=== PATIENT | female | born 1960 | race Caucasian/White ===

== ENCOUNTER 2016-09-01 09:52 | Emergency (ER) | payer SELFPAY ==
[~2016-09-01] VITALS: Ht 167.6 cm; Wt 65.0 kg
[~2016-09-01 09:52] MED LIST: FLUO20SO3 PO; GLUC10TA3 PO; IBUP800T23 PO; LISI-360 PO
[2016-09-01 09:57] VITALS: BP 178/68; PULSE 91; RESP 16; TEMP 97.9; O2SAT 98
--- NOTE | 2016-09-01 10:05 | PD ---
HPI . bug bites/skin problems Chief Complaint: Skin Problem Time Seen by Provider: 10:05 Travel History International Travel<30 days: No Contact w/Intl Traveler<30days: No Traveled to known affect area: No History of Present Illness HPI 56-year-old female here with complaints of bug bites and skin problems for quite some time. Patient says she has been bitten by bugs and has been scratching away at the bites. 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 Today she is here requesting something for pain. She is accompanied by her significant other who would like her examined for any type of infection. Patient tells me she is here requesting pain control medications. She denies any fever or chills. She has no other complaints. PFSH Past Medical History Arthritis: Yes Depression: Yes High Cholesterol: Yes COPD: Yes Cerebrovascular Accident: Yes (POSSIBLE 2009) Diabetes: Yes (TYPE II) Diminished Hearing: No Hypertension: Yes Respiratory: Yes (COPD) Migraines: Yes Past Surgical History Cholecystectomy: Yes Other Surgery: Yes (sinus) Social History Alcohol Use: No Tobacco Use: Yes (1ppd) Substance Use: No Allergies-Medications (Allergen,Severity, Reaction): Coded Allergies: Gabapentin (Verified Allergy, Mild, FACIAL ITCHING, 06/07/15) Morphine (Verified Allergy, Mild, ITCHING AND RASH, 06/07/15) Penicillin (Verified Allergy, Mild, UNKNOWN WAS TOLD CHILD, 06/07/15) Reported Meds & Prescriptions Reported Meds & Active Scripts Active Bactrim DS (Sulfamethoxazole-Trimethoprim) 800-160 Mg Tab 1 Tab PO BID Ibuprofen 800 Mg Tab 800 Mg PO Q6H PRN Reported Prozac (Fluoxetine HCl) 20 Mg/5 Ml Liqd 40 Mg PO DAILY Lisinopril 10 mg (Lisinopril) 10 Mg Tab 20 Mg PO DAILY Glipizide 10 Mg Tab 10 Mg PO DAILY Review of Systems General / Constitutional: No: Fever Eyes: No: Visual changes HENT: No: Headaches Cardiovascular: No: Chest Pain or Discomfort Respiratory: No: Shortness of Breath Gastrointestinal: No: Abdominal Pain Genitourinary: No: Dysuria Musculoskeletal: No: Pain Skin: Positive Other (bug bites/ skin excoriations ), No Rash Neurologic: No: Weakness Psychiatric: No: Depression Endocrine: No: Polydipsia Hematologic/Lymphatic: No: Easy Bruising Physical Exam Narrative GENERAL: AAO x 3, no acute distress, Well-nourished, well-developed patient. SKIN: Warm and dry. Multiple excoriations too numerous to count scattered all throughout the body. Some on the lower extremity bilaterally are slightly erythematous. There are none that look overtly infected. HEAD: Normocephalic and atraumatic. EYES: No scleral icterus. No injection or drainage. EOM intact, PERRLA ENT: No nasal drainage noted. Mucous membranes pink. Airway patent. NECK: Supple, trachea midline. No JVD. CARDIOVASCULAR: Regular rate and rhythm without murmurs, gallops, or rubs. RESPIRATORY: Breath sounds equal bilaterally. No accessory muscle use. No rhonchi or rales. GASTROINTESTINAL: Visual inspection normal EXTREMITIES: No cyanosis or edema. BACK: Nontender without obvious deformity. No CVA tenderness. PSYCH: AAO x 3, normal affect. Data Data Last Documented VS Vital Signs Date Time Temp Pulse Resp B/P Pulse Ox O2 Delivery O2 Flow Rate FiO2 09/01/16 09:57 97.9 91 16 178/68 98 MDM Medical Decision Making Medical Screen Exam Complete: Yes Emergency Medical Condition: Yes Medical Record Reviewed: Yes Differential Diagnosis Bug bites, multiple excoriations, less likely cellulitis, poor hygiene Narrative Course 56-year-old female here with multiple bug bites and scattered excoriations throughout her body. There are none that look overtly infected; however with her poor hygiene and what seems to be deplorable living conditions, I'll go ahead and give her a course of Bactrim. I advised follow-up with her primary care provider. I recommend no more scratching at the excoriations. I've explained to her that she can use Tylenol or Motrin as needed for pain. I explained her that unfortunately I will not be prescribing her any narcotic pain medication. Diagnosis Primary Impression: Insect bite Qualified Code: W57.XXXA - Insect bite, initial encounter Additional Impression: Multiple excoriations Patient Instructions: Acute Wound Care (ED), General Instructions Additional Instructions: Please return to emergency department if your symptoms return or worsen. Follow up with your primary care provider. Take medications as prescribed. Clean your skin with soap and water daily. Try to get rid of the bugs. [place] for worsening signs of infection which include fever, increased redness , increased warmth, purulent drainage, increased swelling or streaking. If any of these develop, please go to the nearest emergency room. Use Tylenol or Motrin as needed for pain. Med/Other Pt SpecificInfo: Prescription(s) given Scripts Sulfamethoxazole-Trimethoprim (Bactrim DS)800-160 Mg Tab1 Tab PO BID #20 TAB Prov:Adam Serrano MD 09/01/16 Disposition: 01 DISCHARGE HOME Condition: Stable Natasha Olson September 01, 2016 10:05
[2016-09-01] MEDS ORDERED: BACT800T5 PO (10:10)
== END 2016-09-01 10:55 | disposition home or self-care (01) ==
LOC: NEPK 09:52
DX: T14.8 Other injury of unspecified body region (principal); W57.XXXA Bitten or stung by nonvenomous insect and other nonvenomous arthropods, initial encounter; E11.9 Type 2 diabetes mellitus without complications; I10 Essential (primary) hypertension; F17.210 Nicotine dependence, cigarettes, uncomplicated
CPT/HCPCS: 99282

== ENCOUNTER 2017-03-13 16:47 | Inpatient (IN) | payer SELFPAY ==
[2017-03-13] VITALS (7 sets, daily range): BP systolic 122–141; BP diastolic 53–65; PULSE 70–99; RESP 18–20; TEMP 98.1–99.1; O2SAT 96–98
[~2017-03-13] VITALS: Ht 167.6 cm; Wt 62.3 kg
[~2017-03-13 16:47] MED LIST changes: +BACT800T5 PO
[2017-03-13] MEDS ORDERED: PROZ40CA PO (17:22)
[2017-03-13] MEDS ORDERED: LISI-515 PO (17:22)
[2017-03-13] MEDS ORDERED: KETOROLAC TROMETHAMINE 30 MG/ML (IVP) VIAL IV PUSH ONE (17:30)
[2017-03-13] MEDS ORDERED: TETANUS/DIPHTHERIA TOXOID ADULT 0.5 ML VIAL IM ONE (17:30)
[2017-03-13] MEDS ORDERED: VANCOMYCIN INJ 1,000 MG in SODIUM CHLOR 0.9% 250 ML INJ 250 ML IV ONE (17:30)
--- NOTE | 2017-03-13 17:37 | PD ---
HPI Chief Complaint: Wound/Suture/Staple Re-Check Time Seen by Provider: 17:15 Travel History International Travel<30 days: No Contact w/Intl Traveler<30days: No Traveled to known affect area: No History of Present Illness HPI Patient is a 56-year-old female who presents to emergency room for evaluation of abscess to her posterior scalp. Patient reports that she has had history of multiple skin infections, she was treated at multiple hospitals for her skin infections which "pop out of no where." Reports that she was supposed to follow -up with a educational therapist but since she does not have insurance, she cannot follow-up with a educational therapist. Patient reports that 3 days ago, she felt "bump " to the back of her head. She reports that the "bump" popped 3 days ago and has been draining. Reports no fever/chills. Reports that she has not been picking the skin on her scalp. Reports that tetanus is not up-to-date. PFSH Past Medical History Hx Anticoagulant Therapy: Yes Arthritis: Yes Depression: Yes Cardiovascular Problems: Yes High Cholesterol: Yes COPD: Yes Cerebrovascular Accident: Yes Diabetes: Yes (TYPE II) Patient Takes Glucophage: No Diminished Hearing: No Hypertension: Yes Respiratory: Yes (COPD) Migraines: Yes Tetanus Vaccination: > 5 Years ?: Not Tubal Ligation: Yes Past Surgical History Cholecystectomy: Yes Other Surgery: Yes (sinus) Social History Alcohol Use: No Tobacco Use: Yes (1ppd) Substance Use: No (POT, COCAINE LAST USE 03/10/17) Allergies-Medications (Allergen,Severity, Reaction): Coded Allergies: gabapentin (Unverified Allergy, Mild, FACIAL ITCHING, 03/13/17) morphine (Unverified Allergy, Mild, ITCHING AND RASH, 03/13/17) penicillin G (Unverified Allergy, Mild, UNKNOWN WAS TOLD CHILD, ) Reported Meds & Prescriptions Reported Meds & Active Scripts Active Reported Lisinopril 20 Mg Tab 20 Mg PO DAILY Prozac (Fluoxetine HCl) 40 Mg Cap 40 Mg PO DAILY Review of Systems General / Constitutional: No: Fever Eyes: No: Visual changes HENT: No: Headaches Cardiovascular: No: Chest Pain or Discomfort Respiratory: No: Shortness of Breath Gastrointestinal: No: Abdominal Pain Genitourinary: No: Dysuria Musculoskeletal: No: Pain Skin: Positive Rash, Positive Itching, Positive Other (abscess) Neurologic: No: Weakness Psychiatric: No: Depression Endocrine: No: Polydipsia Hematologic/Lymphatic: No: Easy Bruising Physical Exam Narrative GENERAL: mild distress SKIN: Focused skin assessment warm/dry. Patient with multiple excoriations throughout her upper and lower extremities HEAD: Normocephalic. Patient with a 3 cm x 3cm circumferential abscess to her posterior scalp with increased purulent drainage EYES: Pupils equal and round. No scleral icterus. No injection or drainage. ENT: No nasal bleeding or discharge. Mucous membranes pink and moist. NECK: Trachea midline. No JVD. CARDIOVASCULAR: Regular rate and rhythm. No murmur appreciated. RESPIRATORY: No accessory muscle use. Clear to auscultation. Breath sounds equal bilaterally. GASTROINTESTINAL: Abdomen soft, non-tender, nondistended. Hepatic and splenic margins not palpable. MUSCULOSKELETAL: No obvious deformities. No clubbing. No cyanosis. No edema. NEUROLOGICAL: Awake and alert. No obvious cranial nerve deficits. Motor grossly within normal limits. Normal speech. PSYCHIATRIC: Appropriate mood and affect; insight and judgment normal. Data Data Last Documented VS Vital Signs Date Time Temp Pulse Resp B/P (MAP) Pulse Ox O2 Delivery O2 Flow Rate FiO2 03/13/17 18:36 82 18 128/59 (82) 98 Room Air 03/13/17 17:22 98.8 Orders Orders Basic Metabolic Panel (Bmp) (03/13/17 17:26) Complete Blood Count With Diff (03/13/17 17:26) Blood Culture (03/13/17 17:26) Ecg Monitoring (03/13/17 17:26) Iv Access Insert/Monitor (03/13/17 17:26) Oximetry (03/13/17 17:26) Vancomycin Inj (Vancomycin Inj) (03/13/17 17:30) Prothrombin Time / Inr (Pt) (03/13/17 17:26) Act Partial Throm Time (Ptt) (03/13/17 17:26) Ct Brain W/O Iv Contrast(Rout) (03/13/17 17:26) Ketorolac Inj (Toradol Inj) (03/13/17 17:30) Tetanus/Diphtheria Tox Adult (Tetanus/Di (03/13/17 17:30) Ed Urine Pregnancytest Poc (03/13/17 17:30) Acetamin-Hydrocod 325-5 Mg ([place] 5-325 (03/13/17 18:30) Admit To Inpatient (03/13/17 ) Vital Signs (Adult) Q4H (03/13/17 18:33) Activity Oob Ad Laly (03/13/17 18:33) Diet Regular Basic (03/13/17 Dinner) Sodium Chloride 0.9% Flush (Ns Flush) (03/13/17 18:45) Sodium Chloride 0.9% Flush (Ns Flush) (03/13/17 21:00) Acetaminophen (Tylenol) (03/13/17 18:45) Ondansetron Inj (Zofran Inj) (03/13/17 18:45) Basic Metabolic Panel (Bmp) (03/14/17 06:00) Complete Blood Count With Diff (03/14/17 06:00) Naloxone Inj (Narcan Inj) (03/13/17 18:45) Sennosides (Senokot) (03/13/17 18:45) Ketorolac Inj (Toradol Inj) (03/13/17 18:45) Clindamycin 600 Mg Premix (Cleocin 600mg (03/13/17 18:45) Ns 1000 Ml (03/13/17 18:45) Labs Laboratory Tests Test 03/13/17 17:40 White Blood Count 18.6 TH/MM3 Red Blood Count 4.80 MIL/MM3 Hemoglobin 12.6 GM/DL Hematocrit 40.1 % Mean Corpuscular Volume 83.6 FL Mean Corpuscular Hemoglobin 26.3 PG Mean Corpuscular Hemoglobin Concent 31.4 % Red Cell Distribution Width 14.3 % Platelet Count 683 TH/MM3 Mean Platelet Volume 7.5 FL Neutrophils (%) (Auto) 77.3 % Lymphocytes (%) (Auto) 17.1 % Monocytes (%) (Auto) 3.5 % Eosinophils (%) (Auto) 0.2 % Basophils (%) (Auto) 1.9 % Neutrophils # (Auto) 14.3 TH/MM3 Lymphocytes # (Auto) 3.2 TH/MM3 Monocytes # (Auto) 0.7 TH/MM3 Eosinophils # (Auto) 0.0 TH/MM3 Basophils # (Auto) 0.4 TH/MM3 CBC Comment DIFF FINAL Differential Comment Prothrombin Time 9.8 SEC Prothromb Time International Ratio 0.9 RATIO Activated Partial Thromboplast Time 24.3 SEC Blood Urea Nitrogen 18 MG/DL Creatinine 1.10 MG/DL Calcium Level 8.9 MG/DL Sodium Level 130 MEQ/L Potassium Level 5.1 MEQ/L Chloride Level 95 MEQ/L Carbon Dioxide Level 25.7 MEQ/L Anion Gap 9 MEQ/L Estimat Glomerular Filtration Rate 51 ML/MIN MDM Medical Decision Making Medical Screen Exam Complete: Yes Emergency Medical Condition: Yes Medical Record Reviewed: Yes Interpretation(s) Vital Signs Date Time Temp Pulse Resp B/P (MAP) Pulse Ox O2 Delivery O2 Flow Rate FiO2 03/13/17 17:22 98.8 95 18 134/65 (88) 96 Room Air 03/13/17 17:00 99.1 99 20 141/64 (89) 98 Differential Diagnosis Abscess Narrative Course During the course of the patients emergency department visit, the patients history, examination, and differential diagnosis were reviewed with the patient. The patient was placed on a strategic account manager with oximetry and frequent blood pressure monitoring. The patient had a 20-gauge IV access obtained and blood work sent for analysis. The patient was initially provided IV vancomycin, IV toradol and updated tetanus shot The patients laboratory studies were reviewed and remarkable for CBC & BMP Diagram 03/13/17 17:40 Calcium Level 8.9 Radiology studies were reviewed and remarkable for: CT of head: CONCLUSION: 1. Scalp laceration/contusion. 2. No acute intracranial abnormality. Patient with a white blood cell count of 18.6, patient with purulent drainage from the abscess to her posterior scalp, patient will require admission to the hospital this time for further treatment case reviewed with dr. rubio who accepts pt to service Diagnosis Primary Impression: Scalp abscess Admitting Information Admitting Physician Requests: Observation Elena Sims DO Mar 13, 2017 17:37
[2017-03-13 17:56] LABS: AUTOMATED NEUTROPHIL # 14.3 TH/MM3 (1.8-7.7); BASOPHIL # 0.4 TH/MM3 (0-0.2); BASOPHIL % 1.9 % (0.0-2.0); EOSINOPHIL % 0.2 % (0.0-4.0); HEMATOCRIT 40.1 % (35.0-46.0); LYMPH % 17.1 % (9.0-44.0); LYMPHOCYTE # 3.2 TH/MM3 (1.0-4.8); MEAN CELL VOLUME 83.6 FL (80.0-100.0); MEAN CORPUSCULAR HEMOGLOBIN 26.3 PG (27.0-34.0); MEAN CORPUSCULAR HGB CONC 31.4 % (32.0-36.0); MONO % 3.5 % (0.0-8.0); NEUT % 77.3 % (16.0-70.0); PLATELET COUNT 683 TH/MM3 (150-450); RED CELL DISTRIBUTION WIDTH 14.3 % (11.6-17.2); WHITE BLOOD COUNT 18.6 TH/MM3 (4.0-11.0)
[2017-03-13 18:04] LABS: HEMO FLAGS DIFF FINAL
[2017-03-13 18:09] LABS: POTASSIUM 5.1 MEQ/L (3.5-5.1)
[2017-03-13 18:11] LABS: APTT (PATIENT) 24.3 SEC (24.3-30.1); INTERNATIONAL NORMALIZED RATIO 0.9 RATIO; PROTHROMBIN TIME - PATIENT 9.8 SEC (9.8-11.6)
[2017-03-13 18:13] LABS: BICARBONATE 25.7 MEQ/L (21.0-32.0)
--- NOTE | 2017-03-13 18:16 | RADRPT ---
EXAM DATE/TIME: 03/13/2017 18:04 [facility] COMPARISON: No previous studies available for comparison. INDICATIONS : Posterior head wound with infection. Patient felt a bump on the back of her head, and then it popped and started draining. Has a history of multiple skin infections. RADIATION DOSE: 57.66 CTDIvol (mGy) MEDICAL HISTORY : Cerebrovascular disease. Chronic obstructive pulmonary disease. Hypertension.Diabetes. Anticoagulant therapy. SURGICAL HISTORY : Cholecystectomy. Tubal ligation.Orthopedic surgery. ENCOUNTER: Initial ACUITY: 3 days PAIN SCALE: 6/10 LOCATION: occipital TECHNIQUE: Multiple contiguous axial images were obtained of the head. Using automated exposure control and adj ustment of the mA and/or kV according to patient size, radiation dose was kept as low as reasonably a chievable to obtain optimal diagnostic quality images. DICOM format image data is available electro nically for review and comparison. FINDINGS: CEREBRUM: The ventricles are normal for age. No evidence of midline shift, mass lesion, hemorrhage or acute in farction. No extra-axial fluid collections are seen. POSTERIOR FOSSA: The cerebellum and brainstem are intact. The 4th ventricle is midline. The cerebellopontine angle i s unremarkable. EXTRACRANIAL: The visualized portion of the orbits is intact. Right posterior scalp laceration/contusion. SKULL: The calvaria is intact. No evidence of skull fracture. CONCLUSION: 1. Scalp laceration/contusion. 2. No acute intracranial abnormality. Irving Multani MD on March 13, 2017 at 18:13 Board Certified Radiologist. This report was verified electronically.
[2017-03-13] MEDS ORDERED: ACETAMINOPHEN/HYDROcodone 325 MG/5 MG TAB PO ONE ×2 (18:30→23:45)
[2017-03-13] MEDS ORDERED: NALOXONE HCL 0.4 MG/ML AMP IV PUSH PRN (18:45)
[2017-03-13] MEDS ORDERED: ONDANSETRON HCL 4 MG/2 ML VIAL IVP PRN (18:45)
[2017-03-13] MEDS ORDERED: ACETAMINOPHEN 325 MG TAB PO PRN (18:45)
[2017-03-13] MEDS ORDERED: SENNOSIDES 8.6 MG TAB PO PRN (18:45)
[2017-03-13] MEDS ORDERED: SODIUM CHLORIDE 0.9% FLUSH 10 ML FLUSH IV FLUSH PRN (18:45)
[2017-03-13] MEDS ORDERED: SODIUM CHLOR 0.9% 1000 ML INJ 1,000 ML IV ONE (19:15)
[2017-03-13] MEDS ORDERED: INSULIN HUMAN REGULAR 1,000 UNITS/10 ML VIAL SQ ONE (19:15)
[2017-03-13] MEDS: SODIUM CHLOR 0.9% 1000 ML INJ 1,000 ML IV SCH ×2 (19:54→20:56)
[2017-03-13] MEDS: CLINDAMYCIN 600 MG PREMIX 50 ML IV SCH (19:58)
[2017-03-13] MEDS: SODIUM CHLORIDE 0.9% FLUSH 10 ML FLUSH IV FLUSH SCH (20:58)
[2017-03-13] MEDS: KETOROLAC TROMETHAMINE 60 MG/2 ML (IM) VIAL IM PRN (21:03)
[2017-03-14] VITALS: BP 140/68; PULSE 70; RESP 18; TEMP 98.1; O2SAT 97
[2017-03-14] MEDS: KETOROLAC TROMETHAMINE 60 MG/2 ML (IM) VIAL IM PRN (03:48)
[2017-03-14] MEDS: CLINDAMYCIN 600 MG PREMIX 50 ML IV SCH ×2 (03:49→11:28)
[2017-03-14 06:38] LABS: AUTOMATED NEUTROPHIL # 9.2 TH/MM3 (1.8-7.7); BASOPHIL % 0.4 % (0.0-2.0); EOSINOPHIL # 0.2 TH/MM3 (0-0.4); EOSINOPHIL % 1.7 % (0.0-4.0); HEMATOCRIT 35.2 % (35.0-46.0); HEMO FLAGS DIFF FINAL; LYMPH % 17.9 % (9.0-44.0); LYMPHOCYTE # 2.2 TH/MM3 (1.0-4.8); MEAN CELL VOLUME 81.4 FL (80.0-100.0); MEAN CORPUSCULAR HEMOGLOBIN 26.3 PG (27.0-34.0); MEAN CORPUSCULAR HGB CONC 32.3 % (32.0-36.0); MONO % 5.2 % (0.0-8.0); NEUT % 74.8 % (16.0-70.0); PLATELET COUNT 536 TH/MM3 (150-450); RED BLOOD COUNT 4.32 MIL/MM3 (4.00-5.30); RED CELL DISTRIBUTION WIDTH 13.7 % (11.6-17.2); WHITE BLOOD COUNT 12.2 TH/MM3 (4.0-11.0)
[2017-03-14 07:26] LABS: BICARBONATE 24.2 MEQ/L (21.0-32.0); POTASSIUM 4.4 MEQ/L (3.5-5.1)
[2017-03-14 07:50] VITALS: BP 159/67; PULSE 81; RESP 20; TEMP 98.3; O2SAT 97
[2017-03-14] MEDS ORDERED: DEXTROSE 50% IN WATER 50 ML VIAL(D50) IV PUSH PRN (08:00)
[2017-03-14] MEDS ORDERED: GLUCAGON 1 MG/ML VIAL OTHER PRN (08:00)
[2017-03-14] MEDS: SODIUM CHLORIDE 0.9% FLUSH 10 ML FLUSH IV FLUSH SCH (08:07)
[2017-03-14] MEDS: INSULIN ASPART SUPPLEMENTAL SCALE SQ SCH ×2 (08:16→11:28)
[2017-03-14] MEDS: SODIUM CHLOR 0.9% 1000 ML INJ 1,000 ML IV SCH (08:16)
[2017-03-14] MEDS ORDERED: LEVEMIR SQ (10:07)
[2017-03-14] MEDS ORDERED: CLIN300C5 PO (10:07)
[2017-03-14] MEDS ORDERED: IBUP-232 PO (10:07)
[2017-03-14] MEDS ORDERED: ACETAMINOPHEN/HYDROcodone 325 MG/7.5 MG TAB PO ONE (10:15)
--- NOTE | 2017-03-14 11:01 | HHI.HP ---
[facility] Service [place] [facility] Primary Care Physician No Primary Care Physician Admission Diagnosis Scalp abscess with drainage Diagnoses: Chief Complaint: Scalp pain Travel History International Travel<30 Days: No Contact w/Intl Traveler <30 Da: No Traveled to Known Affected Are: No History of Present Illness This patient is a 56 female with a history of diabetes which is uncontrolled due to nonadherence. Patient has several areas of abscess in her scalp which aren't actively draining. She is complaining of severe pain in the scalp. She scratches frequently. On admission her blood sugar was over 500. Patient says she is unable to get her diabetic medications but does take her blood pressure medication and smokes daily. She says that she is not able to work due to significant orthopedic pain. She is ambulatory. She gardens in her yard daily. Patient was recommended for observation due to elevated white cell count and abscesses in her scalp. At this point the patient's blood sugars improved with insulin. She has been started on antibiotics and is able to tolerate oral antibiotics. Her pain is improved with oral narcotics. Patient will be discharged home Review of Systems Constitutional: COMPLAINS OF: Weight loss (over 30 pounds in the last 10 months ), DENIES: Diaphoretic episodes, Fatigue, Fever, Weight gain, Chills, Dizziness , Change in appetite, Night Sweats Endocrine: DENIES: Abnorml menstrual pattern, Heat/cold intolerance, Polydipsia , Polyuria, Polyphagia Eyes: DENIES: Blurred vision, Diplopia, Eye inflammation, Eye pain, Vision loss , Photosensitivity, Double Vision Ears, nose, mouth, throat: DENIES: Tinnitus, Hearing loss, Vertigo, Nasal discharge, Oral lesions, Throat pain, Hoarseness, Ear Pain, Running Nose, Epistaxis, Sinus Pain, Toothache, Odynophagia Respiratory: DENIES: Apneas, Cough, Snoring, Wheezing, Hemoptysis, Sputum production, Shortness of breath Cardiovascular: DENIES: Chest pain, Palpitations, Syncope, Dyspnea on Exertion , PND, Lower Extremity Edema, Orthopnea, Claudication Gastrointestinal: DENIES: Abdominal pain, Black stools, Bloody stools, Constipation, Diarrhea, Nausea, Vomiting, Difficulty Swallowing, Anorexia Genitourinary: DENIES: Abnormal vaginal bleeding, Dysmenorrhea, Dyspareunia, Sexual dysfunction, Urinary frequency, Urinary incontinence, Urgency, Hematuria , Dysuria, Nocturia, Vaginal discharge Musculoskeletal: DENIES: Joint pain, Muscle aches, Stiffness, Joint Swelling, Back pain, Neck pain Integumentary: DENIES: Abnormal pigmentation, Pruritus, Rash, Nail changes, Breast masses, Breast skin changes, Nipple discharge Hematologic/lymphatic: DENIES: Bruising, Lymphadenopathy Immunologic/allergic: DENIES: Eczema, Urticaria Neurologic: DENIES: Abnormal gait, Headache, Localized weakness, Paresthesias, Seizures, Speech Problems, Tremor, Poor Balance Psychiatric: COMPLAINS OF: Anxiety Except as stated in HPI: all other systems reviewed are Neg Past Family Social History Past Medical History Diabetes Hypertension Osteoarthritis Past Surgical History Multiple orthopedic surgeries for arthritic issues Tubal ligation Reported Medications Reviewed in the EMR, nonadherent with diabetes management Allergies: Coded Allergies: gabapentin (Unverified Allergy, Mild, FACIAL ITCHING, 03/13/17) morphine (Unverified Allergy, Mild, ITCHING AND RASH, 03/13/17) penicillin G (Unverified Allergy, Mild, UNKNOWN WAS TOLD CHILD, ) Active Ordered Medications Reviewed in the EMR Family History Mother is alive and well father over 40 years ago Social History patient very ambulatory and gardens daily, attends her own activities of daily living Patient smokes half a pack a day, no alcohol Was lives with her was on disability Physical Exam Vital Signs Vital Signs Date Time Temp Pulse Resp B/P (MAP) Pulse Ox O2 Delivery O2 Flow Rate FiO2 03/14/17 07:50 98.3 81 20 159/67 (97) 97 03/14/17 00:00 98.1 70 18 140/68 (92) 97 03/13/17 20:45 98.4 70 18 129/61 (83) 97 03/13/17 20:39 98.1 90 20 122/53 (76) 98 03/13/17 20:11 80 20 03/13/17 19:00 81 20 128/59 (82) 98 03/13/17 18:36 82 18 128/59 (82) 98 Room Air 03/13/17 18:31 18 96 Room Air 03/13/17 18:30 18 11/28/17 17:22 98.8 95 18 134/65 (88) 96 Room Air 03/13/17 17:00 99.1 99 20 141/64 (89) 98 Physical Exam GENERAL: This is a well-nourished, well-developed patient, in no apparent distress. SKIN: Multiple scalp abscesses which are draining HEAD: Atraumatic. Normocephalic. No temporal or scalp tenderness. EYES: Pupils equal round and reactive. Extraocular motions intact. No scleral icterus. No injection or drainage. ENT: Nose without bleeding, purulent drainage or septal hematoma. Throat without erythema, tonsillar hypertrophy or exudate. Uvula midline. Airway patent. NECK: Trachea midline. No JVD or lymphadenopathy. Supple, nontender, no meningeal signs. CARDIOVASCULAR: Regular rate and rhythm without murmurs, gallops, or rubs. RESPIRATORY: Clear to auscultation. Breath sounds equal bilaterally. No wheezes , rales, or rhonchi. GASTROINTESTINAL: Abdomen soft, non-tender, nondistended. No hepato-splenomegaly , or palpable masses. No guarding. MUSCULOSKELETAL: Extremities without clubbing, cyanosis, or edema. No joint tenderness, effusion, or edema noted. No calf tenderness. Negative Homans sign bilaterally. NEUROLOGICAL: Awake and alert. Cranial nerves II through XII intact. Motor and sensory grossly within normal limits. Five out of 5 muscle strength in all muscle groups. Normal speech. Laboratory Laboratory Tests Test 03/13/17 17:40 03/14/17 05:33 White Blood Count 18.6 12.2 Red Blood Count 4.80 4.32 Hemoglobin 12.6 11.4 Hematocrit 40.1 35.2 Mean Corpuscular Volume 83.6 81.4 Mean Corpuscular Hemoglobin 26.3 26.3 Mean Corpuscular Hemoglobin Concent 31.4 32.3 Red Cell Distribution Width 14.3 13.7 Platelet Count 683 536 Mean Platelet Volume 7.5 7.6 Neutrophils (%) (Auto) 77.3 74.8 Lymphocytes (%) (Auto) 17.1 17.9 Monocytes (%) (Auto) 3.5 5.2 Eosinophils (%) (Auto) 0.2 1.7 Basophils (%) (Auto) 1.9 0.4 Neutrophils # (Auto) 14.3 9.2 Lymphocytes # (Auto) 3.2 2.2 Monocytes # (Auto) 0.7 0.6 Eosinophils # (Auto) 0.0 0.2 Basophils # (Auto) 0.4 0.0 CBC Comment DIFF FINAL DIFF FINAL Differential Comment Prothrombin Time 9.8 Prothromb Time International Ratio 0.9 Activated Partial Thromboplast Time 24.3 Blood Urea Nitrogen 18 20 Creatinine 1.10 0.69 Random Glucose 566 314 Calcium Level 8.9 8.2 Sodium Level 130 139 Potassium Level 5.1 4.4 Chloride Level 95 105 Carbon Dioxide Level 25.7 24.2 Anion Gap 9 10 Estimat Glomerular Filtration Rate 51 88 Date/Time Source Procedure Growth Status 03/13/17 17:45 Blood Peripheral Aerobic Blood Culture Pending Received 03/13/17 17:45 Blood Peripheral Anaerobic Blood Culture Pending Received Result Diagram: 03/14/17 0533 03/14/17 0533 Imaging Last Impressions Head CT 03/13/17 1726 Signed Impressions: Service Date/Time: Monday, March 13, 2017 18:04 - CONCLUSION: 1. Scalp laceration/contusion. 2. No acute intracranial abnormality. Irving Multani MD Caprini VTE Risk Assessment Caprini VTE Risk Assessment: No/Low Risk (score <= 1) Caprini Risk Assessment Model Point Value = 1 Point Value = 2 Point Value = 3 Point Value = 5 Age 41-60 Minor surgery BMI > 25 kg/m2 Swollen legs Varicose veins or History of unexplained or recurrent spontaneous Oral contraceptives or hormone replacement Sepsis (< 1 month) Serious lung disease, including pneumonia (< 1 month) Abnormal pulmonary function Acute myocardial infarction Congestive heart failure (< 1 month) History of inflammatory bowel disease Medical patient at bed rest Age 61-74 Arthroscopic surgery Major open surgery (> 45 min) Laparoscopic surgery (> 45 min) Malignancy Confined to bed (> 72 hours) Immobilizing plaster cast Central venous access Age >= 75 History of VTE Family history of VTE Factor V Leiden Prothrombin [id number] Lupus anticoagulant Anticardiolipin antibodies Elevated serum homocysteine Heparin-induced thrombocytopenia Other congenital or acquired thrombophilia Stroke (< 1 month) Elective arthroplasty Hip, pelvis, or leg fracture Acute spinal cord injury (< 1 month) Prophylaxis Regimen Total Risk Factor Score Risk Level Prophylaxis Regimen 0-1 Low Early ambulation 2 Moderate Order ONE of the following: *Sequential Compression Device (SCD) *Heparin 5000 units SQ BID 3-4 Higher Order ONE of the following medications: *Heparin 5000 units SQ TID *Enoxaparin/Lovenox 40 mg SQ daily (WT < 150 kg, CrCl > 30 mL/min) *Enoxaparin/Lovenox 30 mg SQ daily (WT < 150 kg, CrCl > 10-29 mL/min) *Enoxaparin/Lovenox 30 mg SQ BID (WT < 150 kg, CrCl > 30 mL/min) AND/OR *Sequential Compression Device (SCD) 5 or more Highest Order ONE of the following medications: *Heparin 5000 units SQ TID (Preferred with Epidurals) *Enoxaparin/Lovenox 40 mg SQ daily (WT < 150 kg, CrCl > 30 mL/min) *Enoxaparin/Lovenox 30 mg SQ daily (WT < 150 kg, CrCl > 10-29 mL/min) *Enoxaparin/Lovenox 30 mg SQ BID (WT < 150 kg, CrCl > 30 mL/min) AND *Sequential Compression Device (SCD) Assessment and Plan Problem List: (1) DM2 (diabetes mellitus, type 2) ICD Code: E11.9 - Type 2 diabetes mellitus without complications Plan: Patient will insulin Discharge plans discussed with patient and case management (2) Scalp abscess ICD Code: L02.811 - Cutaneous abscess of head [any part, except face] Status: Acute Plan: We'll continue with oral antibiotics at discharge Holly Lopez MD Mar 14, 2017 11:01
[2017-03-14 11:50] VITALS: BP 127/61; PULSE 78; RESP 20; TEMP 97.8; O2SAT 97
--- NOTE | 2017-03-14 13:38 | HHI.DCPOC ---
Discharge Care Plan Diagnosis: (1) Scalp abscess (2) DM2 (diabetes mellitus, type 2) Goals to Promote Your Health * To prevent worsening of your condition and complications * To maintain your health at the optimal level Directions to Meet Your Goals Take your medications as prescribed Follow your dietary instruction Follow activity as directed Keep your appointments as scheduled Take your immunizations and boosters as scheduled If your symptoms worsen call your PCP, if no PCP go to Urgent Care Center or Emergency Room Smoking is Dangerous to Your Health. Avoid second hand smoke Call the 24-hour hour crisis hotline for domestic abuse at Holly Lopez MD Mar 14, 2017 13:38
[2017-03-14] MEDS ORDERED: INSULIN DETEMIR 100 UNITS/ML VIAL SQ SCH (21:00)
== END 2017-03-14 14:28 | disposition home or self-care (01) | DRG 603 ==
LOC: PHED 16:47 → PHEDA 18:35 → PH3A 20:41
PROVIDERS: ADMIT Hospitalist; ATTEND Hospitalist
DX: L02.811 Cutaneous abscess of head [any part, except face] (principal); E11.65 Type 2 diabetes mellitus with hyperglycemia; I10 Essential (primary) hypertension; J44.9 Chronic obstructive pulmonary disease, unspecified; F17.210 Nicotine dependence, cigarettes, uncomplicated; F32.9 Major depressive disorder, single episode, unspecified; M19.90 Unspecified osteoarthritis, unspecified site; E78.00 Pure hypercholesterolemia, unspecified; Z86.73 Personal history of transient ischemic attack (TIA), and cerebral infarction without residual deficits; Z91.14 Patient's other noncompliance with medication regimen
CPT/HCPCS: 70450; 80048; 82948; 85025; 85610; 85730; 87040; 90714; J1815; J1885; J3370; J7030; J7050

== ENCOUNTER 2017-04-08 20:47 | Emergency (ER) | payer SELFPAY ==
[~2017-04-08] VITALS: Ht 167.6 cm; Wt 64.0 kg
[~2017-04-08 20:47] MED LIST changes: -BACT800T5 PO; +CLIN300C5 PO; -FLUO20SO3 PO; -GLUC10TA3 PO; +IBUP-232 PO; -IBUP800T23 PO; +LEVEMIR SQ; -LISI-360 PO; +LISI-515 PO; +PROZ40CA PO
[2017-04-08 20:54] VITALS: BP 165/137; PULSE 112; RESP 22; TEMP 98.8; O2SAT 100
[2017-04-08] MEDS ORDERED: SODIUM CHLOR 0.9% 1000 ML INJ 1,000 ML IV SCH (21:21)
--- NOTE | 2017-04-08 21:21 | PD ---
HPI Chief Complaint: Skin Problem Time Seen by Provider: 21:06 Travel History International Travel<30 days: No Contact w/Intl Traveler<30days: No Traveled to known affect area: No History of Present Illness HPI 57-year-old female presents to the emergency department with complaint of multiple lesions to her scalp, face, body 6 months, with worsening today. Said she was here a few weeks ago and was admitted and given oral antibiotics which she finished about a week ago. Was taking clindamycin. Says the areas are painful and itchy. Reports that mean abuse and chronic picking. Her vomiting. Has been using tea tree oil, Benadryl, Aleve, Advil, topical antibiotics and hydrocortisone cream with no relief of symptoms. Nothing makes her symptoms better. Symptoms are moderate in severity. Allergies to penicillin, morphine, gabapentin. Doesn't know the name of her primary care provider. Has not seen a informatics developer and does not have a informatics developer. History of hypertension, diabetes, COPD. Takes Levemir and says her blood sugars have been in the low 200s. Has no other medical complaints. No other modifying factors or associated signs and symptoms. PFSH Past Medical History Hx Anticoagulant Therapy: Yes Arthritis: Yes Depression: Yes Cardiovascular Problems: Yes High Cholesterol: Yes COPD: Yes Cerebrovascular Accident: Yes Diabetes: Yes (TYPE II) Patient Takes Glucophage: No Diminished Hearing: No Genitourinary: No Headaches: No Hypertension: Yes Musculoskeletal: Yes Neurologic: Yes Reproductive: No Respiratory: Yes (COPD) Migraines: Yes Seizures: No ?: Not Tubal Ligation: Yes Past Surgical History Abdominal Surgery: No Cardiac Surgery: No Cholecystectomy: Yes Ear Surgery: No Endocrine Surgery: Yes (gallbladder) Eye Surgery: No Genitourinary Surgery: No Gynecologic Surgery: No Oral Surgery: No Thoracic Surgery: No Other Surgery: Yes (sinus) Social History Alcohol Use: No Tobacco Use: Yes (1ppd) Substance Use: Yes (POT, COCAINE LAST USE 03/10/17) Allergies-Medications (Allergen,Severity, Reaction): Coded Allergies: gabapentin (Unverified Allergy, Mild, FACIAL ITCHING, 03/13/17) morphine (Unverified Allergy, Mild, ITCHING AND RASH, 03/13/17) penicillin G (Unverified Allergy, Mild, UNKNOWN WAS TOLD CHILD, ) Reported Meds & Prescriptions Reported Meds & Active Scripts Active Levemir Inj (Insulin Detemir) 1,000 unit/ 10 ML Vial 10 Units SQ HS Do not mix with any other Insulin. Ibuprofen 600 Mg Tab 600 Mg PO Q8H PRN Clindamycin (Clindamycin HCl) 300 Mg Cap 600 Mg PO TID Reported Lisinopril 20 Mg Tab 20 Mg PO DAILY Prozac (Fluoxetine HCl) 40 Mg Cap 40 Mg PO DAILY Review of Systems Except as stated in HPI: all other systems reviewed are Neg Physical Exam Narrative GENERAL: Well-nourished, well-developed patient, in no acute distress; tearful, afebrile, nontoxic-appearing SKIN: Warm and dry. Multiple lesions noted to face, scalp, bilateral upper extremities, chest, upper back, bilateral lower extremities; no drainage noted to any of the lesion; all in different stages of healing. HEAD: Atraumatic. Normocephalic. EYES: Pupils equal and round. No scleral icterus. No injection or drainage. ENT: Mucosa pink and moist. Airway patent. NECK: Trachea midline. CARDIOVASCULAR: Regular rate and rhythm. No murmur appreciated. RESPIRATORY: No accessory muscle use. Clear to auscultation. Breath sounds equal bilaterally. GASTROINTESTINAL: Abdomen soft, non-tender, nondistended. Hepatic and splenic margins not palpable. Bowel sounds are active 4 quadrants. MUSCULOSKELETAL: No obvious deformities. No clubbing. No cyanosis. No edema. NEUROLOGICAL: Awake and alert. Oriented 3. No obvious cranial nerve deficits. Motor grossly within normal limits. Normal speech. PSYCHIATRIC: Appropriate mood and affect; insight and judgment normal. Data Data Last Documented VS Vital Signs Date Time Temp Pulse Resp B/P (MAP) Pulse Ox O2 Delivery O2 Flow Rate FiO2 04/08/17 21:38 98 Room Air 04/08/17 20:54 98.8 112 22 165/137 (146) Orders Orders Basic Metabolic Panel (Bmp) (04/08/17 21:21) Complete Blood Count With Diff (04/08/17 21:21) Iv Access Insert/Monitor (04/08/17 21:21) Ecg Monitoring (04/08/17 21:21) Oximetry (04/08/17 21:21) Sodium Chlor 0.9% 1000 Ml Inj (Ns 1000 M (04/08/17 21:21) Sodium Chloride 0.9% Flush (Ns Flush) (04/08/17 21:30) Ketorolac Inj (Toradol Inj) (04/08/17 21:30) Diphenhydramine Inj (Benadryl Inj) (04/08/17 21:30) Labs Laboratory Tests Test 04/08/17 21:30 White Blood Count 17.4 TH/MM3 Red Blood Count 5.03 MIL/MM3 Hemoglobin 13.6 GM/DL Hematocrit 41.4 % Mean Corpuscular Volume 82.3 FL Mean Corpuscular Hemoglobin 27.0 PG Mean Corpuscular Hemoglobin Concent 32.8 % Red Cell Distribution Width 15.1 % Platelet Count 382 TH/MM3 Mean Platelet Volume 7.4 FL Neutrophils (%) (Auto) 81.8 % Lymphocytes (%) (Auto) 11.7 % Monocytes (%) (Auto) 5.7 % Eosinophils (%) (Auto) 0.4 % Basophils (%) (Auto) 0.4 % Neutrophils # (Auto) 14.2 TH/MM3 Lymphocytes # (Auto) 2.0 TH/MM3 Monocytes # (Auto) 1.0 TH/MM3 Eosinophils # (Auto) 0.1 TH/MM3 Basophils # (Auto) 0.1 TH/MM3 CBC Comment DIFF FINAL Differential Comment MDM Medical Decision Making Medical Screen Exam Complete: Yes Emergency Medical Condition: Yes Medical Record Reviewed: Yes Differential Diagnosis Multiple excoriations, amphetamine abuse, cellulitis, skin infection, medical clearance Narrative Course 57-year-old female with multiple excoriations to face, scalp, body. Reports amphetamine use and picking. Was seen on March 13 for 23 hour observation secondary to drinking scalp abscess. I do not see any drainage from any of the lesions currently. On March 13 her white blood cell count was elevated, she was admitted and given IV antibiotics, and then discharged on clindamycin which she reports finishing one week ago. Her tetanus was updated on 1127. Blood cultures 2 were negative. There was no wound culture obtained. I discussed the patient with my attending physician, Dr. Mathew, and she agrees with my plan of care. IV site established. CBC, BMP, Benadryl, Toradol, normal saline bolus ordered. 2300: Dr. Mathew assumed patient care at this time. See her note for final patient disposition. Diagnosis Primary Impression: Multiple excoriations Joyce Lisa Apr 08, 2017 21:21
[2017-04-08] MEDS ORDERED: KETOROLAC TROMETHAMINE 30 MG/ML (IVP) VIAL IV PUSH ONE (21:30)
[2017-04-08] MEDS ORDERED: SODIUM CHLORIDE 0.9% FLUSH 10 ML FLUSH IV FLUSH PRN (21:30)
[2017-04-08] MEDS ORDERED: diphenhydrAMINE HCL 50 MG/ML VIAL IV PUSH ONE (21:30)
[2017-04-08 21:38] VITALS: O2SAT 98
[2017-04-08 22:49] LABS: AUTOMATED NEUTROPHIL # 14.2 TH/MM3 (1.8-7.7); BASOPHIL # 0.1 TH/MM3 (0-0.2); BASOPHIL % 0.4 % (0.0-2.0); EOSINOPHIL # 0.1 TH/MM3 (0-0.4); EOSINOPHIL % 0.4 % (0.0-4.0); HEMATOCRIT 41.4 % (35.0-46.0); HEMOGLOBIN 13.6 GM/DL (11.6-15.3); LYMPH % 11.7 % (9.0-44.0); MEAN CELL VOLUME 82.3 FL (80.0-100.0); MEAN CORPUSCULAR HGB CONC 32.8 % (32.0-36.0); MEAN PLATELET VOLUME 7.4 FL (7.0-11.0); MONO % 5.7 % (0.0-8.0); NEUT % 81.8 % (16.0-70.0); PLATELET COUNT 382 TH/MM3 (150-450); RED BLOOD COUNT 5.03 MIL/MM3 (4.00-5.30); RED CELL DISTRIBUTION WIDTH 15.1 % (11.6-17.2); WHITE BLOOD COUNT 17.4 TH/MM3 (4.0-11.0)
[2017-04-08 22:54] VITALS: RESP 18
[2017-04-08 23:15] LABS: BICARBONATE 24.2 MEQ/L (21.0-32.0); CALCIUM 9.7 MG/DL (8.5-10.1); CREATININE 0.93 MG/DL (0.50-1.00)
[2017-04-08] MEDS ORDERED: CLINDAMYCIN 600 MG/NS PREMIX 50 ML IV ONE (23:45)
[2017-04-08] MEDS ORDERED: traMADol HCL 50 MG TAB PO ONE (23:45)
[2017-04-08] MEDS ORDERED: CLIN300C5 PO (23:50)
[2017-04-08] MEDS ORDERED: MUPI2%T TOPICAL (23:50)
--- NOTE | 2017-04-08 23:50 | PD ---
Data Data Last Documented VS Vital Signs Date Time Temp Pulse Resp B/P (MAP) Pulse Ox O2 Delivery O2 Flow Rate FiO2 04/08/17 22:54 18 04/08/17 21:38 98 Room Air 04/08/17 20:54 98.8 112 165/137 (146) Orders Orders Basic Metabolic Panel (Bmp) (04/08/17 21:21) Complete Blood Count With Diff (04/08/17 21:21) Iv Access Insert/Monitor (04/08/17 21:21) Ecg Monitoring (04/08/17 21:21) Oximetry (04/08/17 21:21) Sodium Chlor 0.9% 1000 Ml Inj (Ns 1000 M (04/08/17 21:21) Sodium Chloride 0.9% Flush (Ns Flush) (04/08/17 21:30) Ketorolac Inj (Toradol Inj) (04/08/17 21:30) Diphenhydramine Inj (Benadryl Inj) (04/08/17 21:30) Clindamycin 600 Mg/Ns Premix (Cleocin 60 (04/08/17 23:45) Tramadol (Ultram) (04/08/17 23:45) Labs Laboratory Tests Test 04/08/17 21:30 White Blood Count 17.4 TH/MM3 Red Blood Count 5.03 MIL/MM3 Hemoglobin 13.6 GM/DL Hematocrit 41.4 % Mean Corpuscular Volume 82.3 FL Mean Corpuscular Hemoglobin 27.0 PG Mean Corpuscular Hemoglobin Concent 32.8 % Red Cell Distribution Width 15.1 % Platelet Count 382 TH/MM3 Mean Platelet Volume 7.4 FL Neutrophils (%) (Auto) 81.8 % Lymphocytes (%) (Auto) 11.7 % Monocytes (%) (Auto) 5.7 % Eosinophils (%) (Auto) 0.4 % Basophils (%) (Auto) 0.4 % Neutrophils # (Auto) 14.2 TH/MM3 Lymphocytes # (Auto) 2.0 TH/MM3 Monocytes # (Auto) 1.0 TH/MM3 Eosinophils # (Auto) 0.1 TH/MM3 Basophils # (Auto) 0.1 TH/MM3 CBC Comment DIFF FINAL Differential Comment Blood Urea Nitrogen 13 MG/DL Creatinine 0.93 MG/DL Random Glucose 230 MG/DL Calcium Level 9.7 MG/DL Sodium Level 134 MEQ/L Potassium Level 4.0 MEQ/L Chloride Level 98 MEQ/L Carbon Dioxide Level 24.2 MEQ/L Anion Gap 12 MEQ/L Estimat Glomerular Filtration Rate 62 ML/MIN MDM Supervised Visit with PANKAJ: Yes Narrative Course The history, exam, and medical decision-making in the associated midlevel provider note were completed with my assistance. I reviewed and agree with the findings presented. I attest that I had a [id number] encounter with the patient on the same day, and personally performed and documented my assessment and findings in the medical record. *My assessment and Findings: This is a 57-year-old female who presents to the emergency Department with 6 months of chronic skin wounds on her face and chest and arms. She reports that she's getting worsening wounds on her scalp today and she's having a burning pain. She's not had any fever. She does have a leukocytosis. She completed clindamycin about a week and a half ago when she said that really helped her. She does have a leukocytosis but she otherwise appears well. I think she benefit from outpatient antibiotic therapy and she does have some areas of crusted lesions which would benefit from bactroban. Diagnosis Primary Impression: Cellulitis Qualified Codes: L03.211 - Cellulitis of face Patient Instructions: General Instructions Additional Instruction: If you develop fever, increasing redness, warmth, or spreading of your infection , or severe pain return to the emergency department immediately as you may require antibiotics through your IV. Complete your course of antibiotics as prescribed. Med/Other Pt SpecificInfo: Prescription(s) given Scripts Mupirocin Topical (Bactroban Topical) 22 Gm Cream 1 APPLIC TOPICAL TID for Mgmt Bacterial Infection, #1 TUBE 0 Refills Prov: Cindy Mathew MD 04/08/17 Clindamycin (Clindamycin) 300 Mg Cap 300 MG PO TID for Infection, #21 CAP 0 Refills Prov: Cindy Mathew MD 04/08/17 Disposition: 01 DISCHARGE HOME Condition: Stable Cindy Mathew MD Apr 08, 2017 23:50
[2017-04-09] MEDS ORDERED: MUPIROCIN 2% OINT 22 GM TUBE TOPICAL ONE
== END 2017-04-09 00:19 | disposition home or self-care (01) ==
LOC: NEPC 20:47
DX: L03.211 Cellulitis of face (principal); I10 Essential (primary) hypertension; E11.9 Type 2 diabetes mellitus without complications; F17.200 Nicotine dependence, unspecified, uncomplicated; Z79.4 Long term (current) use of insulin
CPT/HCPCS: 80048; 85025; 96361; 96365; 96375; 99284; J1200; J1885; J7030

== ENCOUNTER 2017-07-17 10:49 | Emergency (ER) | payer SELFPAY ==
[~2017-07-17] VITALS: Ht 167.6 cm; Wt 65.0 kg
[~2017-07-17 10:49] MED LIST changes: +MUPI2%T TOPICAL
[2017-07-17 11:01] VITALS: BP 117/56; PULSE 79; RESP 17; TEMP 98.1; O2SAT 97
[2017-07-17] MEDS ORDERED: GLIP10TA6 PO (11:36)
[2017-07-17 11:38] LABS: AUTOMATED NEUTROPHIL # 6.5 TH/MM3 (1.8-7.7); BASOPHIL # 0.1 TH/MM3 (0-0.2); EOSINOPHIL # 0.3 TH/MM3 (0-0.4); EOSINOPHIL % 2.4 % (0.0-4.0); HEMATOCRIT 38.2 % (35.0-46.0); HEMOGLOBIN 12.7 GM/DL (11.6-15.3); LYMPH % 28.5 % (9.0-44.0); MEAN CORPUSCULAR HEMOGLOBIN 27.3 PG (27.0-34.0); MEAN CORPUSCULAR HGB CONC 33.2 % (32.0-36.0); MEAN PLATELET VOLUME 7.6 FL (7.0-11.0); MONO % 6.7 % (0.0-8.0); MONOCYTE # 0.7 TH/MM3 (0-0.9); NEUT % 61.4 % (16.0-70.0); PLATELET COUNT 360 TH/MM3 (150-450); RED BLOOD COUNT 4.65 MIL/MM3 (4.00-5.30); RED CELL DISTRIBUTION WIDTH 14.8 % (11.6-17.2); WHITE BLOOD COUNT 10.6 TH/MM3 (4.0-11.0)
[2017-07-17 11:42] LABS: BACTERIA, URINE OCC /hpf; BILIRUBIN, URINE NEG (NEG); BLOOD, URINE NEG (NEG); GLUCOSE,URINE 300 mg/dL (NEG); HYALINE CAST, URINE 3 /lpf (RARE); KETONE, URINE NEG (NEG); NITRITE,URINE NEG (NEG); PH, URINE 5.5 (5.0-8.5); SQUAMOUS EPITHELIAL CELL URINE 10 /hpf (0-5); URINE COLOR YELLOW (YELLW/STRAW); URINE LEUKOCYTE ESTERASE MOD (NEG)
[2017-07-17 11:55] LABS: ALBUMIN 3.5 GM/DL (3.4-5.0); AST (GOT) 13 U/L (15-37); BICARBONATE 27.8 MEQ/L (21.0-32.0); BLOOD UREA NITROGEN 24 MG/DL (7-18); CALCIUM 8.3 MG/DL (8.5-10.1); CHLORIDE 102 MEQ/L (98-107); CREATININE 0.97 MG/DL (0.50-1.00); GLOMERULAR FILTRATION RATE 59 ML/MIN (>89); GLUCOSE,RANDOM 273 MG/DL (74-106); SODIUM (NA) 136 MEQ/L (136-145)
[2017-07-17 11:56] LABS: ALT (GPT) 24 U/L (10-53)
--- NOTE | 2017-07-17 11:57 | PD ---
HPI Chief Complaint: Diabetic Time Seen by Provider: 11:30 Travel History International Travel<30 days: No Contact w/Intl Traveler<30days: No Traveled to known affect area: No History of Present Illness HPI The patient was seen and examined in the presence of the nurse. This patient is a polysubstance abusing patient. She takes Lortab and Klonopin that she gets from friends. She does marijuana and cocaine. She denies IV drug abuse. Her daughter called police who brought her here for evaluation. She has some generalized weakness and speech slurring. She admits to taking medications today. She denies intentional overdose or suicidal thought. She denies any specific muscle group weakness or sensory loss. She denies headache or head injury. He denies alcohol abuse. Symptom severity is moderate. No alleviating factors. Symptoms exacerbated by her drug use. Duration is unknown. She is somewhat evasive as to the length of her use PFSH Past Medical History Hx Anticoagulant Therapy: Yes Arthritis: Yes Depression: Yes Cardiovascular Problems: Yes High Cholesterol: Yes COPD: Yes Cerebrovascular Accident: Yes Diabetes: Yes (TYPE II) Patient Takes Glucophage: No Diminished Hearing: No Genitourinary: No Headaches: No Hypertension: Yes Musculoskeletal: Yes Neurologic: Yes Reproductive: No Respiratory: Yes (COPD) Migraines: Yes Seizures: No Tetanus Vaccination: < 5 Years ?: Not Tubal Ligation: Yes Past Surgical History Abdominal Surgery: No Cardiac Surgery: No Cholecystectomy: Yes Ear Surgery: No Endocrine Surgery: Yes (gallbladder) Eye Surgery: No Genitourinary Surgery: No Gynecologic Surgery: No Oral Surgery: No Thoracic Surgery: No Other Surgery: Yes (sinus) Social History Alcohol Use: No Tobacco Use: Yes (1ppd) Substance Use: Yes (POT, COCAINE in the past) Allergies-Medications (Allergen,Severity, Reaction): Coded Allergies: gabapentin (Unverified Allergy, Mild, FACIAL ITCHING, 07/17/17) morphine (Unverified Allergy, Mild, ITCHING AND RASH, 07/17/17) penicillin G (Unverified Allergy, Mild, UNKNOWN WAS TOLD CHILD, 07/17/17) Reported Meds & Prescriptions Reported Meds & Active Scripts Active Reported Glipizide 10 Mg Tab 20 Mg PO BID Take 30 minutes before a meal Lisinopril 20 Mg Tab 20 Mg PO DAILY Prozac (Fluoxetine HCl) 40 Mg Cap 40 Mg PO DAILY Review of Systems General / Constitutional: No: Fever Eyes: No: Visual changes HENT: No: Headaches Cardiovascular: No: Chest Pain or Discomfort Respiratory: No: Shortness of Breath Gastrointestinal: No: Abdominal Pain Genitourinary: No: Dysuria Musculoskeletal: Positive: Weakness, No: Pain Skin: Positive Rash Neurologic: Positive: Weakness, Slurred Speech Psychiatric: Positive: Substance Abuse, No: Depression Endocrine: No: Polydipsia Hematologic/Lymphatic: No: Easy Bruising Physical Exam Narrative GENERAL: Disheveled well-developed patient in no apparent distress. SKIN: Focused skin assessment reveals no rash and nodules. Skin is Warm and dry. She has a blotchy skin rash which is a chronic condition and she follows with dermatology for HEAD: Atraumatic. Normocephalic. EYES: Pupils equal and round. No scleral icterus. No injection or drainage. ENT: No nasal bleeding or discharge. Mucous membranes pink and moist. NECK: Trachea midline. No JVD. CARDIOVASCULAR: Regular rate and rhythm. No murmur appreciated. RESPIRATORY: No accessory muscle use. Clear to auscultation. Breath sounds equal bilaterally. GASTROINTESTINAL: Abdomen soft, non-tender, nondistended. Hepatic and splenic margins not palpable. MUSCULOSKELETAL: No obvious deformities. No clubbing. No cyanosis. No edema. NEUROLOGICAL: Awake and alert. No obvious cranial nerve deficits. Motor grossly within normal limits. Slight slurring of speech but understandable . PSYCHIATRIC: Appropriate mood and affect; insight and judgment poor . Data Data Last Documented VS Vital Signs Date Time Temp Pulse Resp B/P (MAP) Pulse Ox O2 Delivery O2 Flow Rate FiO2 07/17/17 14:00 70 14 118/58 (78) 96 Room Air 07/17/17 11:01 98.1 Orders Orders Complete Blood Count With Diff (07/17/17 10:59) Comprehensive Metabolic Panel (07/17/17 10:59) Urinalysis - C+S If Indicated (07/17/17 10:59) Drug Screen, Random Urine (07/17/17 10:59) Alcohol (Ethanol) (07/17/17 11:45) Tylenol (Acetaminophen) (07/17/17 11:45) Salicylates (Aspirin) (07/17/17 11:45) Labs Laboratory Tests Test 07/17/17 11:15 White Blood Count 10.6 TH/MM3 Red Blood Count 4.65 MIL/MM3 Hemoglobin 12.7 GM/DL Hematocrit 38.2 % Mean Corpuscular Volume 82.0 FL Mean Corpuscular Hemoglobin 27.3 PG Mean Corpuscular Hemoglobin Concent 33.2 % Red Cell Distribution Width 14.8 % Platelet Count 360 TH/MM3 Mean Platelet Volume 7.6 FL Neutrophils (%) (Auto) 61.4 % Lymphocytes (%) (Auto) 28.5 % Monocytes (%) (Auto) 6.7 % Eosinophils (%) (Auto) 2.4 % Basophils (%) (Auto) 1.0 % Neutrophils # (Auto) 6.5 TH/MM3 Lymphocytes # (Auto) 3.0 TH/MM3 Monocytes # (Auto) 0.7 TH/MM3 Eosinophils # (Auto) 0.3 TH/MM3 Basophils # (Auto) 0.1 TH/MM3 CBC Comment DIFF FINAL Differential Comment Urine Color YELLOW Urine Turbidity HAZY Urine pH 5.5 Urine Specific [place] 1.023 Urine Protein TRACE mg/dL Urine Glucose (UA) 300 mg/dL Urine Ketones NEG mg/dL Urine Occult Blood NEG Urine Nitrite NEG Urine Bilirubin NEG Urine Urobilinogen LESS THAN 2.0 MG/DL Urine Leukocyte Esterase MOD Urine RBC 3 /hpf Urine WBC 5 /hpf Urine Squamous Epithelial Cells 10 /hpf Urine Bacteria OCC /hpf Urine Hyaline Casts 3 /lpf Microscopic Urinalysis Comment CULT NOT INDICATED Blood Urea Nitrogen 24 MG/DL Creatinine 0.97 MG/DL Random Glucose 273 MG/DL Total Protein 7.0 GM/DL Albumin 3.5 GM/DL Calcium Level 8.3 MG/DL Alkaline Phosphatase 105 U/L Aspartate Amino Transf (AST/SGOT) 13 U/L Alanine Aminotransferase (ALT/SGPT) 24 U/L Total Bilirubin 0.2 MG/DL Sodium Level 136 MEQ/L Potassium Level 4.5 MEQ/L Chloride Level 102 MEQ/L Carbon Dioxide Level 27.8 MEQ/L Anion Gap 6 MEQ/L Estimat Glomerular Filtration Rate 59 ML/MIN Salicylates Level 2.8 MG/DL Urine Opiates Screen POS Acetaminophen Level LESS THAN 2.0 MCG/ML Urine Barbiturates Screen NEG Urine Amphetamines Screen POS Urine Benzodiazepines Screen POS Urine Cocaine Screen NEG Urine Cannabinoids Screen NEG Ethyl Alcohol Level LESS THAN 3 MG/DL MDM Medical Decision Making Medical Screen Exam Complete: Yes Emergency Medical Condition: Yes Medical Record Reviewed: Yes Differential Diagnosis Overmedication, medication side effect, overdose Narrative Course I have reviewed the patient's electronic medical record. Patient appears to be overmedicated. It does not seem to rise to a level of hospitalization for my initial evaluation. We will keep an eye on her for a while I have ordered some labs and urine studies Tox screen is positive for multiple substances Alcohol and Tylenol and aspirin levels are not alarming. She has hyperglycemic at 273 General blood counts noted Give the patient a long time to sober up. I believe she is overmedicated but not requiring hospitalization or emergent psychiatric evaluation. Seems to have a substance a problem but not psychiatric. Recommending [facility] outpatient services. She is now more awake and alert. She is ambulated to the restroom. We will attempt to get her a ride home with a responsible adult. She requests a refill of her glipizide which I will do Diagnosis Primary Impression: Drug side effects Additional Impressions: Medication side effects Polysubstance abuse Hyperglycemia due to type 2 diabetes mellitus Qualified Codes: E11.65 - Type 2 diabetes mellitus with hyperglycemia Additional Instructions: Avoid illicit drugs Check and record blood sugar frequently The patient was advised to follow up with their physician and return if they worsen. Med/Other Pt SpecificInfo: Prescription(s) given Disposition: DISCHARGE HOME Condition: Stable Adam Serrano MD Jul 17, 2017 11:57
[2017-07-17 11:58] LABS: ALKALINE PHOSPHATASE 105 U/L (45-117); TOTAL BILIRUBIN ADULT 0.2 MG/DL (0.2-1.0)
[2017-07-17 13:08] LABS: ACETAMINOPHEN LESS THAN 2.0 MCG/ML (10.0-30.0)
[2017-07-17 14:00] VITALS: BP 118/58; PULSE 70; RESP 14; O2SAT 96
[2017-07-17 19:11] VITALS: BP 138/63; PULSE 70; RESP 18; O2SAT 9; O2SAT 99
== END 2017-07-17 19:18 | disposition home or self-care (01) ==
LOC: NEPC 10:49
DX: F13.129 Sedative, hypnotic or anxiolytic abuse with intoxication, unspecified (principal); F11.10 Opioid abuse, uncomplicated; F15.10 Other stimulant abuse, uncomplicated; E11.65 Type 2 diabetes mellitus with hyperglycemia; E78.00 Pure hypercholesterolemia, unspecified; F32.9 Major depressive disorder, single episode, unspecified; I10 Essential (primary) hypertension; J44.9 Chronic obstructive pulmonary disease, unspecified; F17.210 Nicotine dependence, cigarettes, uncomplicated; Z86.73 Personal history of transient ischemic attack (TIA), and cerebral infarction without residual deficits; Z79.899 Other long term (current) drug therapy
CPT/HCPCS: 80053; 80307; 81001; 85025; 99283